=== PATIENT | male | born 1970 | race Caucasian/White ===

== ENCOUNTER 2016-12-10 13:30 | Observation (INO) | payer SELFPAY ==
[~2016-12-10] VITALS: Ht 185.4 cm; Wt 124.3 kg
[2016-12-10] VITALS (8 sets, daily range): BP systolic 103–157; BP diastolic 64–101; PULSE 60–103; RESP 11–22; O2SAT 93–100
[2016-12-10 14:23] LABS: BASOPHILS % (AUTO) 0.2 % (0-3); EOSINOPHILS % (AUTO) 0.2 % (0-5); MONOCYTES % (AUTO) 5.4 % (4-12); Mean Corpuscular Hemoglobin 31.3 pg (27.0-35.0); Mean Corpuscular Volume 89.2 fL (81-100); NEUTROPHILS % (AUTO) 84.7 % (40-74); Platelet Count 216 bil/L (150-400)
[2016-12-10 14:46] LABS: Magnesium 1.7 mg/dL (1.6-2.6)
--- NOTE | 2016-12-10 16:05 | ED.REPORT ---
HPI-Abd Pain M 40 and Over Date of Service Dec 10, 2016 ED Provider: Doc,Ed MD History of Present Illness: right lower abd pain since 1 am this am, some nausea, no vomiting. primary care is no one. 02/25 no hx of kidney stone. Had a bannana at 3 am. Nursing Notes Stated Complaint: ABD PAIN Chief Complaint: Male Abdominal Pain Nursing Notes Reviewed: Yes Allergies: Coded Allergies: No Known Allergies (Unverified , 12/10/16) Scheduled Ascorbate Calcium (Vitamin C) 500 Mg Tablet 500 MG PO DAILY Cholecalciferol (Vitamin D3) (Vitamin D) 1,000 Unit Tablet 1,000 UNIT PO DAILY Multivitamin (Once Daily) 1 Each Tablet 1 EACH PO DAILY General Time Seen by MD: 16:04 Chief Complaint Abdominal pain Hx Obtained From: Patient Sudden in Onset?: Yes Symptom Duration: Since onset Past Medical History Past Medical History Denies: Asthma, Diabetes mellitus Past Surgical History denies Smoking History Never Smoker Social History chewed for 30 years quit 07/2014 - 12/10/2016 Alcohol Use: Denies alcohol use (quit in 2008) Drug Use: THC (cocaine) Other Social History: Occupation work at [employer] in [place] Ambulatory Status Independent Review of Systems Basic Review of Systems Eyes: Vision NL, No discharge Skin: No bruising, No rash, No itch Psychiatric: Normal thought content Physical Exam Initial Vital Signs Vital Signs (First) Date Time Temp Pulse Resp B/P Pulse Ox O2 Delivery O2 Flow Rate FiO2 12/10/16 13:32 35.8 103 22 157/101 95 Room Air Initial VS: Reviewed, Vital signs normal Head / Eyes: Atraumatic, Normocephalic, PERRL ENT: Mucous membranes moist, Conjunctiva normal, No scleral icterus Neck: Supple, Non-tender, Full range of motion Lymphatic: No lymphadenopathy Extremities: Vascular intact, Neuro intact, No swelling, No tenderness Skin: Warm, Dry, No cyanosis Neurologic: Alert, Oriented, Nonfocal Psychiatric: Mood/affect normal, Behavior normal, Normal thought content General/Constitutional: Awake, Alert, No acute distress, Well appearing, Well developed, Well hydrated Respiratory / Chest: Atraumatic, Breath sounds NL, Breath sounds = bilat, No respiratory distress Cardiovascular: Heart rate NL, Regular rhythm, Heart sounds NL, No gallop, No murmurs, No rubs, Cap refill not delayed Abdomen: Soft Tenderness/Guarding/Rebound: Positive: Guarding voluntary, Tender RLQ... ( Moderate) Back: Atraumatic, Inspection NL, Full range of motion Head / Eyes: Atraumatic, Normocephalic, PERRL Interpretation & Diagnostics Lab Results Interpretation Result Diagram: 12/10/16 1415 12/10/16 1415 Test 12/10/16 14:15 12/10/16 17:39 White Blood Count 12.0th/mm3 (3.8-10.1) Red Blood Count 5.20mil/mm3 (4.40-5.80) Hemoglobin 16.3g/dL (13.8-17.2) Hematocrit 46.4% (41.0-50.0) Mean Corpuscular Volume 89.2fL (81-100) Mean Corpuscular Hemoglobin 31.3pg (27.0-35.0) Mean Corpuscular Hemoglobin Concent 35.1% (32.0-37.0) Red Cell Distribution Width 14.0% (12.3-15.4) Platelet Count 216bil/L (150-400) Neutrophils (%) (Auto) 84.7% (40-74) Lymphocytes (%) (Auto) 9.3% (14-46) Monocytes (%) (Auto) 5.4% (4-12) Eosinophils (%) (Auto) 0.2% (0-5) Basophils (%) (Auto) 0.2% (0-3) Sodium Level 136mEq/L (134-144) Potassium Level 4.0mEq/L (3.5-5.2) Chloride Level 97mEq/L (97-108) Carbon Dioxide Level 24mmol/L (18-29) Blood Urea Nitrogen 12mg/dL (6-24) Creatinine 0.86mg/dL (0.76-1.27) Estimat Glomerular Filtration Rate 102mL/min (>59) Glucose Level 110mg/dL (60-99) Calcium Level 9.7mg/dL (8.5-10.1) Magnesium Level 1.7mg/dL (1.6-2.6) Total Bilirubin 0.9mg/dL (0.0-1.2) Aspartate Amino Transf (AST/SGOT) 28U/L (0-50) Alanine Aminotransferase (ALT/SGPT) 46U/L (0-44) Alkaline Phosphatase 80U/L (25-150) Total Protein 7.5g/dL (6.4-8.4) Albumin 4.6g/dL (3.4-5.0) Lipase 21U/L (13-60) Hold Griffin Top Tube Received (Received) Urine Color Yellow (YELLOW) Urine Appearance Clear (CLEAR,HAZY) Urine pH 5.5 (5.0-8.0) Urine Specific [place] 1.015 (1.003-1.035) Urine Protein Negativemg/dL (NEG,TRACE) Urine Glucose (UA) Negativemg/dL (NEGATIVE) Urine Ketones Negativemg/dL (NEGATIVE) Urine Occult Blood Small (NEGATIVE) Urine Nitrite Negative (NEGATIVE) Urine Bilirubin Negative (NEGATIVE) Urine Urobilinogen Normalmg/dL (NORMAL) Urine Leukocyte Esterase Negative (NEGATIVE) Urine RBC 3-10/hpf (0-2) Urine WBC 0-5/hpf (0-5) Urine Epithelial Cells Few/hpf (NONE-MOD) Urine Crystals None seen (NONE SEEN) Urine Bacteria Few/hpf (NONE-FEW) Urine Hyaline Casts None/lpf (NONE) Urine Granular Casts None seen (NONE SEEN) Urine Waxy Casts None seen (NONE SEEN) Urine Red Blood Cell Casts None seen (NONE SEEN) Urine White Blood Cell Casts None seen (NONE SEEN) Urine Mucus None seen (None Seen) Urine Trichomonas None seen (NONE SEEN) Urine Yeast None (NONE SEEN) Urinalysis Comment None Urine Culture Reflexed Not indicated CT Abd / Pelvis Interpretation OCEDURE: CT ABDOMEN AND PELVIS WITH CONTRAST ([id number]) INDICATIONS: right lower quadrant pain TECHNIQUE: After the administration of intravenous contrast, 5 mm thick sections acquired from the diaphragm to the symphysis. 5 mm coronal and sagittal reformats were acquired. For radiation dose reduction, the following was used: automated exposure control, adjustment of mA and/or kV according to patient size. COMPARISON: None. FINDINGS: Image quality: Excellent. ABDOMEN: Lung bases: Lung bases are clear. Heart size is normal. Solid organs: Liver and spleen are normal in size and enhancement. Gallbladder appears normal. Biliary system is non dilated. Pancreas enhances normally. No adrenal nodules. Kidneys demonstrate normal size and enhancement, without hydronephrosis. Peritoneum and bowel: Bowel loops demonstrate normal wall thickness and caliber. No free fluid or air. Nodes and vessels: No retroperitoneal or mesenteric adenopathy by size criteria. Aorta and inferior vena cava are normal in size. Miscellaneous: No ventral hernias. PELVIS: Genitourinary: Bladder wall thickness is normal. Miscellaneous: No inguinal hernias or adenopathy. At the right lower quadrant there is definite acute appendicitis without evidence of appendiceal perforation at this time. There are appendicoliths both at the base of the appendix and at the far tip of the appendix, which extends inferiorly towards the right lower quadrant. The cecum is somewhat higher than usual in the lower abdomen, with the appendix tracking inferiorly into the pelvis. The appendiceal base is at the axial level of the umbilicus in this case. The maximal appendiceal diameter is 1.8 cm. Bones: No suspicious bony lesions. No vertebral body compression fractures. IMPRESSION: Acute appendicitis without evidence of appendiceal perforation at this time. As noted, there are at least 2 appendicoliths involved with the appendiceal dilatation and inflammation. Maximal appendiceal diameter is 1.8 cm, unusually prominent. This would increase the risk of perforation as would the appendicoliths noted. Findings immediately called to the ordering health care provider at the emergency room. She will contact the on-call surgeon for consultation. Dictated by: Navarro Armstrong M.D. on 12/10/2016 at 16:57 Approved by: Navarro Armstrong M.D. on 12/10/2016 at 17:02 Re-Eval/Medical Decision Med Decision/Clinical Course 45 year old male presents for evualation for sudden onset of right loer abd pain. CT does indicate acute appy. Dr. Jackson is notified and antibiotics are started. IV dilaulid for pain control Discharge & Departure Primary Impression: Acute appendicitis with appendiceal abscess Disposition: ADMITTED TO HOSPITAL Vital Signs - All Vital Signs Date Time Temp Pulse Resp B/P Pulse Ox O2 Delivery O2 Flow Rate FiO2 12/10/16 18:03 37.3 97 18 122/79 95 Room Air 12/10/16 15:12 37.6 95 16 138/80 93 Room Air 12/10/16 13:32 35.8 103 22 157/101 95 Room Air Referrals: NOPCP (PCP) EDSupervising Provider for APC: Estella Guillen MD, Sue ARNP Dec 10, 2016 16:05
[2016-12-10] MEDS ORDERED: Ondansetron 2 mg/mL 2 mL Inj IVPUSH ONE (16:15)
[2016-12-10] MEDS ORDERED: 0.9% Sodium Chloride 1,000 ML IV ONE (16:15)
[2016-12-10] MEDS ORDERED: HYDROmorphone 0.5 mg/0.5 mL iSecure Syringe IVPUSH ONE (16:15)
--- NOTE | 2016-12-10 17:04 | DRSVH ---
PROCEDURE: CT ABDOMEN AND PELVIS WITH CONTRAST ([id number]) INDICATIONS: right lower quadrant pain TECHNIQUE: After the administration of intravenous contrast, 5 mm thick sections acquired from the diaphragm to the symphysis. 5 mm coronal and sagittal reformats were acquired. For radiation dose reduction, the following was used: automated exposure control, adjustment of mA and/or kV according to patient siz e. COMPARISON: None. FINDINGS: Image quality: Excellent. ABDOMEN: Lung bases: Lung bases are clear. Heart size is normal. Solid organs: Liver and spleen are normal in size and enhancement. Gallbladder appears normal. David iary system is non dilated. Pancreas enhances normally. No adrenal nodules. Kidneys demonstrate no rmal size and enhancement, without hydronephrosis. Peritoneum and bowel: Bowel loops demonstrate normal wall thickness and caliber. No free fluid or a ir. Nodes and vessels: No retroperitoneal or mesenteric adenopathy by size criteria. Aorta and inferior vena cava are normal in size. Miscellaneous: No ventral hernias. PELVIS: Genitourinary: Bladder wall thickness is normal. Miscellaneous: No inguinal hernias or adenopathy. At the right lower quadrant there is definite acu te appendicitis without evidence of appendiceal perforation at this time. There are appendicoliths b oth at the base of the appendix and at the far tip of the appendix, which extends inferiorly towards the right lower quadrant. The cecum is somewhat higher than usual in the lower abdomen, with the alex endix tracking inferiorly into the pelvis. The appendiceal base is at the axial level of the umbilic us in this case. The maximal appendiceal diameter is 1.8 cm. Bones: No suspicious bony lesions. No vertebral body compression fractures. IMPRESSION: Acute appendicitis without evidence of appendiceal perforation at this time. As noted, t here are at least 2 appendicoliths involved with the appendiceal dilatation and inflammation. Maximal appendiceal diameter is 1.8 cm, unusually prominent. This would increase the risk of perfora tion as would the appendicoliths noted. Findings immediately called to the ordering health care provider at the emergency room. She will con tact the on-call surgeon for consultation. Dictated by: Navarro Armstrong M.D. on 12/10/2016 at 16:57 Approved by: Navarro Armstrong M.D. on 12/10/2016 at 17:02
[2016-12-10] MEDS ORDERED: Piperacillin-Tazo 3.375 Gm Inj 3.375 GM in Dextrose 5% Minibag Plus 50 ML IV ONE (17:10)
[2016-12-10] MEDS ORDERED: MULT-666 PO (17:34)
[2016-12-10] MEDS ORDERED: CHOL100043 PO (17:34)
[2016-12-10] MEDS ORDERED: ASCO-294 PO (17:34)
[2016-12-10 17:54] LABS: APPEARANCE,URINE CLEAR (CLEAR,HAZY); COLOR,URINE YELLOW (YELLOW); OCCULT BLOOD,URINE SMALL (NEGATIVE); PH,URINE 5.5 (5.0-8.0); UROBILINOGEN,URINE NORMAL (NORMAL)
[2016-12-10] MEDS ORDERED: HYDROmorphone 0.5 mg/0.5 mL iSecure Syringe IVPUSH PRN (18:05)
[2016-12-10] MEDS ORDERED: fentaNYL-PF 50 mCg/mL 2 mL Inj ONE (18:21)
[2016-12-10] MEDS ORDERED: Dexamethasone 4 mg/mL Inj ONE (18:21)
[2016-12-10] MEDS ORDERED: Remifentanil 1 mg/3 mL Inj ONE (18:21)
[2016-12-10] MEDS ORDERED: MetoCLOpramide 5 mg/mL 2 mL Inj ONE (18:21)
[2016-12-10] MEDS ORDERED: EPHEDrine/NS 5 mg/mL 5 mL Syringe ONE (18:21)
[2016-12-10] MEDS ORDERED: Neostigmine 1 mg/mL 10 mL Inj ONE (18:21)
[2016-12-10] MEDS ORDERED: Ondansetron 2 mg/mL 2 mL Inj ONE (18:21)
[2016-12-10] MEDS ORDERED: Succinylcholine Chloride 20 mg/mL 5 mL Inj ONE (18:21)
[2016-12-10] MEDS ORDERED: Glycopyrrolate 0.2 MG/ML 1mL Inj ONE (18:21)
[2016-12-10] MEDS ORDERED: Rocuronium 10 mg/mL 5 mL Inj ONE (18:21)
[2016-12-10] MEDS ORDERED: Propofol 10,000 mCg/mL 20 mL Inj ONE (18:21)
[2016-12-10] MEDS ORDERED: Lactated Ringer's 1,000 ML IV ONE (19:19)
[2016-12-10] MEDS ORDERED: Lactated Ringer's 500 ML IV PRN (19:37)
[2016-12-10] MEDS ORDERED: Lactated Ringer's 1,000 ML IV SCH (19:37)
--- NOTE | 2016-12-10 19:37 | PCM.HPANE ---
Patient Data Surgeon Admitting Provider:Fernando Jackson MD Attending Provider:Fernando Jacskon MD Primary Care Physician:Nopcp Other Provider: Reason for Visit APPY Ht/WT & BMI Height (Feet): 6 Height (Inches): 1 Weight (Kilograms): 122.73 Body Mass Index Allergies Coded Allergies: No Known Allergies (Unverified , 12/10/16) Past Anesthesia History Anesthesia History: Denies:: Abnormal Airway, Anesthesia Reactions, Difficult Intubation, Fam Anesthesia Reaction, Fam Malignant Hypertherm, Malignant Hyperthermia Diabetes History Hx Diabetes?: No Medications Reported Medications Cholecalciferol (Vitamin D3) (Vitamin D)1,000 Unit Tablet1,000 Unit PO DAILY #1 BOTTLE Ref 0 12/10/16 Multivitamin (Once Daily)1 Each Tablet1 Each PO DAILY 12/10/16 Ascorbate Calcium (Vitamin C)500 Mg Unsyxt336 Mg PO DAILY 12/10/16 History History of ENT Problems?: No HEENT History: Denies:: Abnormal Airway Cataracts Difficult Intubation Dysphagia Glaucoma Hearing Problem Sinus Problem TMJ Denture Type: None Teeth Condition: Within Normal Limits Hx of Heart Problems?: No Cardiovascular History: Denies:: AICD Abdominal Aortic Aneurism Atrial Fibrillation Cardiac Surgery Chest Pain Congestive Heart Failure Coronary Artery Disease Edema Heart Murmur Hypertension Irregular Heartbeat Pacemaker Peripheral Vascular Rheumatic Fever Thrombophlebitis Valvular Heart Disease Hx of Respiratory Problem?: No Respiratory History: Denies:: Asthma COPD Chest Surgery Cough Dyspnea Emphysema Hemoptysis Oxygen Administration Pneumonia Pulmonary Embolism Tuberculosis Use of C-PAP Machine Use of Inhalers / NEBS Hx Neurologic Problems?: No Neurological History: Denies:: Alzheimer's Disease CVA Dementia Dizziness Headaches Multiple Sclerosis Parkinson's Disease Peripheral Neuropathy Seizures TIA Hx of GI Problems?: No Gastrointestinal History: Denies:: Cirrhosis Diverticulitis Gall Bladder Disease Gastroesphageal Reflux Gastrointestinal Bleeding Heartburn Hepatitis Hiatal Hernia Liver Disease Rectal Bleeding Hx of Problems?: No Genitourinary History: Denies:: HX of Hemodialysis Kidney Stones Urinary Tract Infection Male Hx: Denies:: Prostate Problems Scrotal Mass Testicular Surgery Skin History: Denies:: History Skin Disorders? Pressure Ulcers Hx Musculoskeletal Problems?: No Musculoskeletal History: Denies:: Back Injury Degenerative Joint Fibromyalgia Joint Replacement Musculoskeletal Trauma Myasthenia Gravis Osteoarthritis Rheumatoid Arthritis Systemic Lupus Hx of Psycho/Social Problems?: No Psycho Social History: Denies:: Anxiety Bipolar Disorder Hx Depression Suicide Attempt Hx Surgeries?: No Hx Diabetes: No Hx Alcohol Use: Yes (QUIT 2008 "WAS FAIRLY HEAVY DRINKER")Hx Substance Use: Yes (COCAINE, MARIJUANA AND ACID A TEEN) Smoking Status: Never Smoker Stop/Bang Risk Assessment Category Category 1A: Patient has history of documented sleep apnea, and HAS NOT received any narcotic, sedative or anesthesia administration during this stay. Category 1B: Patient has history of documented sleep apnea, and HAS received any narcotic , sedative or anesthesia administration during this stay Category 2: Patient has SUSPECTED Obstructive Sleep Apnea, and HAS received any narcotic , sedative or anesthesia administration during this stay. Category 3: Patient has SUSPECTED Obstructive Sleep Apnea and HAS NOT received narcotic, sedative or anesthesia administration during this stay. Category 4: Outpatient in Procedural Areas with known sleep apnea or who screen positive for High Risk via the STOP/BANG questionnaire. Exam Exam Vital Signs Vital Signs Date Time Temp Pulse Resp B/P Pulse Ox O2 Delivery O2 Flow Rate FiO2 12/10/16 18:03 37.3 97 18 122/79 95 Room Air 12/10/16 15:12 37.6 95 16 138/80 93 Room Air 12/10/16 13:32 35.8 103 22 157/101 95 Room Air General Appearance: Alert, Oriented X3, Cooperative, No Acute Distress HEENT/AIRWAY: MP 2 Lungs: Clear to Auscultation Heart: Exam Unremarkable Meds/Labs/Diagnostics Admission Meds Current Medications Sodium Chloride (Normal Saline) 1,000 ml @ 0 mls/hr Q0M ONCE IV Last administered on 12/10/16 16:23; Start 12/10/16 at 16:15; Stop 12/10/16 at 16:17 ; Status DC Ondansetron HCl (Zofran Inj) 4 mg ONCE ONCE IVPUSH Last administered on 16:23; Start 12/10/16 at 16:15; Stop 12/10/16 at 16:17; Status DC Hydromorphone HCl 0.5 mg 0.5 mg ONCE ONCE IVPUSH Last administered on 16:23; Start 12/10/16 at 16:15; Stop 12/10/16 at 16:17; Status DC Piperacillin Sod/ Tazobactam Sod/ Dextrose/Water (Zosyn 3.375 Gm Inj/D5W Minibag Plus) 50 ml @ 100 mls/hr ONCE ONCE IV Last administered on 12/10/16t 17:38; Start 12/10/16 at 17:10; Stop 12/10/16 at 17:39; Status DC Labs Test 12/10/16 14:15 12/10/16 17:39 White Blood Count 12.0th/mm3 (3.8-10.1) Red Blood Count 5.20mil/mm3 (4.40-5.80) Hemoglobin 16.3g/dL (13.8-17.2) Hematocrit 46.4% (41.0-50.0) Mean Corpuscular Volume 89.2fL (81-100) Mean Corpuscular Hemoglobin 31.3pg (27.0-35.0) Mean Corpuscular Hemoglobin Concent 35.1% (32.0-37.0) Red Cell Distribution Width 14.0% (12.3-15.4) Platelet Count 216bil/L (150-400) Neutrophils (%) (Auto) 84.7% (40-74) Lymphocytes (%) (Auto) 9.3% (14-46) Monocytes (%) (Auto) 5.4% (4-12) Eosinophils (%) (Auto) 0.2% (0-5) Basophils (%) (Auto) 0.2% (0-3) Sodium Level 136mEq/L (134-144) Potassium Level 4.0mEq/L (3.5-5.2) Chloride Level 97mEq/L (97-108) Carbon Dioxide Level 24mmol/L (18-29) Blood Urea Nitrogen 12mg/dL (6-24) Creatinine 0.86mg/dL (0.76-1.27) Estimat Glomerular Filtration Rate 102mL/min (>59) Glucose Level 110mg/dL (60-99) Calcium Level 9.7mg/dL (8.5-10.1) Magnesium Level 1.7mg/dL (1.6-2.6) Total Bilirubin 0.9mg/dL (0.0-1.2) Aspartate Amino Transf (AST/SGOT) 28U/L (0-50) Alanine Aminotransferase (ALT/SGPT) 46U/L (0-44) Alkaline Phosphatase 80U/L (25-150) Total Protein 7.5g/dL (6.4-8.4) Albumin 4.6g/dL (3.4-5.0) Lipase 21U/L (13-60) Hold Griffin Top Tube Received (Received) Urine Color Yellow (YELLOW) Urine Appearance Clear (CLEAR,HAZY) Urine pH 5.5 (5.0-8.0) Urine Specific [place] 1.015 (1.003-1.035) Urine Protein Negativemg/dL (NEG,TRACE) Urine Glucose (UA) Negativemg/dL (NEGATIVE) Urine Ketones Negativemg/dL (NEGATIVE) Urine Occult Blood Small (NEGATIVE) Urine Nitrite Negative (NEGATIVE) Urine Bilirubin Negative (NEGATIVE) Urine Urobilinogen Normalmg/dL (NORMAL) Urine Leukocyte Esterase Negative (NEGATIVE) Urine RBC 3-10/hpf (0-2) Urine WBC 0-5/hpf (0-5) Urine Epithelial Cells Few/hpf (NONE-MOD) Urine Crystals None seen (NONE SEEN) Urine Bacteria Few/hpf (NONE-FEW) Urine Hyaline Casts None/lpf (NONE) Urine Granular Casts None seen (NONE SEEN) Urine Waxy Casts None seen (NONE SEEN) Urine Red Blood Cell Casts None seen (NONE SEEN) Urine White Blood Cell Casts None seen (NONE SEEN) Urine Mucus None seen (None Seen) Urine Trichomonas None seen (NONE SEEN) Urine Yeast None (NONE SEEN) Urinalysis Comment None Urine Culture Reflexed Not indicated Plan Impression Patient chart reviewed, patient interviewed and anesthestic plan with risks, benefits, and alternatives discussed, and informed consent obtained. ASA Physical Status: ASA2 Mod Systemic Disease Anesthetic Plan: GA Bene/Risks/Altern/Consents: Yes HP Complete Prior to Induction: Yes Gabriel Mauricio MD Dec 10, 2016 18:22
[2016-12-10] MEDS ORDERED: Dexamethasone 4 mg/mL Inj IVPUSH PRN (19:40)
[2016-12-10] MEDS ORDERED: Phenylephrine 10,000 mCg/mL Inj IVPUSH PRN (19:40)
[2016-12-10] MEDS ORDERED: EPHEDrine Sulfate 50 mg/mL Inj IVPUSH PRN (19:40)
[2016-12-10] MEDS ORDERED: MetoCLOpramide 5 mg/mL 2 mL Inj IVPUSH PRN (19:40)
[2016-12-10] MEDS ORDERED: HYDROmorphone 1 mg/mL Inj IVPUSH PRN ×2 (19:40→20:15)
[2016-12-10] MEDS ORDERED: Ondansetron 2 mg/mL 2 mL Inj IVPUSH PRN ×2 (19:40→20:10)
[2016-12-10] MEDS ORDERED: fentaNYL-PF 50 mCg/mL 2 mL Inj IVPUSH PRN (19:40)
[2016-12-10] MEDS ORDERED: Bupivacaine-MPF 0.5% W/EPI 30 mL Inj INFILTRATE ONE (19:51)
[2016-12-10] MEDS ORDERED: Sodium Chloride LOK Flush 10 mL Syringe IVFLUSH PRN (20:10)
--- NOTE | 2016-12-10 20:32 | PCM.ANEP1 ---
Post Anesthesia Phase 1 PACU Phase 1 Assessment Vital Signs Vital Signs Date Time Temp Pulse Resp B/P Pulse Ox O2 Delivery O2 Flow Rate FiO2 12/10/16 20:26 36.3 68 11 104/67 100 Simple Mask 8 12/10/16 18:03 37.3 97 18 122/79 95 Room Air 12/10/16 15:12 37.6 95 16 138/80 93 Room Air 12/10/16 13:32 35.8 103 22 157/101 95 Room Air Anesthetic Administered: GA Level of Alertness: Awake, talking HERRERA's with Equal Strength: Yes Pain: No Pain Scale Score: 5 Nausea or Vomiting: No Oxygen Delivery: Simple Mask Lungs: Clear to Auscultation Dermatome Level: Full Sensation Complications: No Gabriel Mauricio MD Dec 10, 2016 20:31
--- NOTE | 2016-12-10 22:32 | HP ---
[address] [address] HISTORY AND PHYSICAL PATIENT: PARI MENDOSA : 1970 MR#: [id number] ADMIT: 12/10/2016 JOB ID: [id number] CHIEF COMPLAINT: Appendicitis. HISTORY OF PRESENT ILLNESS: The patient is a 45-year-old male with a one day history of abdominal pain. The patient woke up at 1 a.m. this morning with excruciating pain that was described as shooting. This was associated with nausea but no emesis. He did feel some warm and chills today. Thinking back, he has had 3-4 month history of pain in the right lower quadrant when he bends over, which only lasts a few minutes. Due to the excruciating pain in the right lower quadrant, patient presented to the emergency department for evaluation. A CT scan was performed that suggests acute appendicitis. PAST MEDICAL HISTORY: Broken ribs, broken nose and broken wrist. MEDICATIONS: None. ALLERGIES: None. SOCIAL HISTORY: The patient lives with his in [place]. They have one daughter. 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 He does not smoke. FAMILY HISTORY: Positive for liver disease, but no appendicitis. REVIEW OF SYSTEMS: Positive for the right lower quadrant pain, nausea and chills. All other systems reviewed were negative. PHYSICAL EXAMINATION: The patient is currently in the [facility] in no acute distress. His BMI is 35.7. His temperature 37.6, blood pressure 138/80, pulse 95, respirations 16. Head: Normocephalic, atraumatic. There is no scleral icterus. Neck is supple. Heart is regular rate. Lungs are clear. Abdomen is nondistended but it is tender in the right lower quadrant on palpation. There is no rebound. There are no palpable masses. Extremities shows no clubbing and no cyanosis. Neurologically, the patient is appropriate and answers questions. LABORATORY EXAMINATION: Today shows a white blood count of 12, hematocrit 46.4, platelet count is 216. Sodium is 136, potassium 4.0, creatinine 0.86, lipase of 21. CT scan report from today shows a 1.8 cm appendix with two appendicoliths suggesting acute appendicitis. ASSESSMENT: This is a 45-year-old male with acute appendicitis. The patient has been started on IV antibiotics. We will take the patient to the operating room today for laparoscopic appendectomy, possible open. The risks of the operation were explained to the patient and he understands and wishes to proceed.
--- NOTE | 2016-12-10 23:52 | OP ---
[address] [address] OPERATIVE REPORT PATIENT: PARI MENDOSA : 1970 MR#: [id number] ADMIT: 12/10/2016 JOB ID: [id number] DATE OF SURGERY: 12/10/2016 SURGEON: Fernando Jackson MD FI[employer]PERATIONS FARM MANAGER: Alonso Rodriguez PA-C ANESTHESIA: General. PREOPERATIVE DIAGNOSIS(ES): Acute appendicitis. POSTOPERATIVE DIAGNOSIS(ES): Acute appendicitis. PRINCIPAL PROCEDURE: Laparoscopic appendectomy. INDICATION FOR PROCEDURE: The patient is a 45-year-old male with a CT scan finding consistent with acute appendicitis. PRINCIPAL FINDING: Successful laparoscopic appendectomy for acute nonperforated appendicitis. The assistance from a surgical PA was critical in assistance with camera and instruments, and was critical in completion of the case. PROCEDURE COURSE: The patient was brought to the operating table and was provided with general anesthesia. The patient had already received IV antibiotics and was provided with SCDs. A time-out was performed. The patient's abdomen was then prepped and draped in the usual sterile fashion. Next, local anesthetic was injected into the left upper quadrant location and a 5 mm stab incision was made. A Veress needle was used to establish pneumoperitoneum. Next, a 5 mm trocar was then placed and the laparoscope was then introduced. A second 5 mm trocar was then placed in the left lateral abdomen and a 12 mm trocar was then placed in the left lower quadrant. The appendix was quickly identified in the right lower quadrant with signs of acute appendicitis. The mesoappendix was then taken using electrocautery. The base of the appendix was freed circumferentially. Next, using an endoscopic stapler, the base of the appendix was then transected. The specimen was then placed into the EndoCatch bag and removed from the patient. Irrigation of the pelvis, right lower quadrant and of the right upper quadrant was carried out. The staple line was intact and there were no signs of bleeding. Next, we turned our attention to the left lower quadrant trocar site. The fascial defect there was then reapproximated using 0 Vicryl suture using the Endoclose device. Next, CO2 was allowed to escape and all the trocars were then removed from the patient. Skin edges were then reapproximated using absorbable sutures. Steri-Strips and sterile dressing was then placed over each wound. By the end of procedure, needle counts and sponge counts were correct. The patient was then extubated and taken to the recovery room in stable satisfactory condition.
[2016-12-11] MEDS ORDERED: 0.9% Sodium Chloride 250 ML ONE (01:13)
[2016-12-11] MEDS: Piperacillin-Tazo 3.375 Gm Inj 3.375 GM in Dextrose 5% Minibag Plus 50 ML IV SCH ×2 (01:24→09:47)
--- NOTE | 2016-12-11 01:35 | NUR ---
post op pt arrived to [facility] room 1017 at 2130. he is alert and oriented x3. He has 3 lap sites with steri strips and band-aids that are c/d/i. he is tolerated water and has eaten crackers and soup without any n/v. he complained of pain 6/10 in his abdomen and was given a one time dose of 0.5 mg of dilaudid and has been sleeping, appearing comfortable since then. VSS and a-febrile. care continues.
[2016-12-11 01:52] VITALS: BP 108/62; PULSE 78; RESP 18; O2SAT 97
[2016-12-11 05:47] VITALS: BP 116/68; PULSE 80; RESP 18; O2SAT 98
[2016-12-11 06:13] LABS: Mean Corpuscular Hemoglobin 31.7 pg (27.0-35.0); Mean Corpuscular Volume 91.5 fL (81-100)
[2016-12-11] MEDS: HYDROcodone-APAP 5-325 mg Tablet PO PRN ×3 (06:24→11:51)
--- NOTE | 2016-12-11 10:30 | NUR ---
Social Work-screening/readiness for discharge: Data:EMR Reviewed. Pt is 45 y/o female who was admitted on 12/10/16 for appy per H&P. Pt's insurance is self pay and no PCP. SW met with pt at bedside to discuss discharge planning, SW role explained. Pt is alert and oriented x3. Pt resides at home with his family in [place] where he remains independent with ADLS. Pt drives and has been up ambulating in the hallways independently. Pt confirms he has not completed Advanced directive/DPOA paperwork and is not interested in any information. SW discussed pt's lack of insurance and PCP. Pt confirms that he is not interested in [facility],etc due to being too expensive. [facility]CA to screen pt. SW provided pt with [facility] application. SW provided pt with phone number and plan on white board in room. Pt's family to provide transport home. No discharge needs identified. SW will continue to follow. Assessment:Pt who is independent at baseline. Plan:Pt to discharge home when medically stable via POV.[facility] application has been provided. No discharge needs identified. SW will continue to follow. CHELY Reyes
--- NOTE | 2016-12-11 12:34 | PCM.DISURG ---
Surgical Discharge Instruction Date of Service Dec 11, 2016 Dates of Hospitalization Date of Hospital Admission Dec 10, 2016 at 18:20 Providers Admitting Physician: Fernando Jackson MD Primary Care Physician: Nopcp Attending Physician: Fernando Jackson MD Discharge Diagnosis Discharge Diagnosis acute appendicitis Post Operative diagnosis same, status post laparoscopic appendectomy Diet Discharge Diet: No restrictions Activity Discharge Activity-General: Try not to overdue, Be up and about, Balance rest and activity, No driving while taking narcotic Dressing and Incisional Care Dressing Care: Allow Steri Stripes to fall off, Remove outer dressing after 24 hrs Hygiene: May shower, DO NOT soak incision under water, NO bathtub, hot tub or whirlpool Additional Instructions Discharge Instructions Call the office with any questions or concerns, keep hydrated and take stool softeners as needed; minimize narcotics and it is ok to take ibuprofen, 400- 600mg with food for mild pain and narcotics for severe or break through pain Follow Up Plan Follow Up Plan Followup in surgery clinic as instructed, Mid-level Provider (F9): Janette Garibay PAC Follow-up appointment: Days (10-14) Call your provider for: Fever, Chills, Shortness of breath, Increasing abdominal pain, Vomiting, Wound redness, Increasing wound pain, Warmth to touch , Discharge @ incision, pus discharge Janette Garibay PAC Dec 11, 2016 12:34
[2016-12-11] MEDS ORDERED: HYDR-4003 PO (12:36)
--- NOTE | 2016-12-11 13:34 | NUR ---
Social Work-discharge: Data:EMR Reviewed. Pt is on day 1 of hospitalization for appy per H&P. Pt is medically stable for discharge. [facility] application has been provided to pt. Pt has been up independent in his room. Pt's family to provide transport home. No discharge needs identified. All updated and agreeable to plan. Assessment:Pt who is independent at baseline. Plan:Pt to discharge home today via POV. No discharge needs identified. All updated and agreeable to plan. CHELY Reyes
--- NOTE | 2016-12-11 14:24 | PCM.PNSURG ---
Subjective Date of Service: Dec 11, 2016 Date of Service: Dec 11, 2016 Visit Information: Reason for Visit APPY Surgery/Surgery Date LAP APPENDECTOMY 12/10/16 Post-Op Day # Date of Admission: Dec 10, 2016 at 18:20 Hospital Day # Subjective: Patient is seen in surgical follow-up, he is postop day 1 status post lap appendectomy for acute appendicitis. He reports he is doing very well, his pain is well-controlled Vicodin.. His pain is in the left lower quadrant the left lower quadrant port site He is tolerating a regular diet without nausea/ vomiting. He is passing flatus. Postop General: No Shortness of Breath Gastrointestinal: Tolerating Oral Feedings, No N/V, Passing Flatus Pain Management: PO Postop Activity: Ambulating Independently, Ambulate without Assist, Ambulating in Room Only Objective Objective Pleasant middle-aged man in no acute distress, and child bedside Intake and Output- Last 8 Hour 12/11/16 Cumulative From/Thru 07:00 12/10/16 13:32 - 12/11/16 05:47 Intake Total 600 ml 1500 ml Output Total 350 ml 350 ml Balance 250 ml 1150 ml Intake Oral 600 ml 600 ml IV Total 900 ml Output Urine Total 350 ml 350 ml # Voids 1 1 # Bowel Movements 0 0 General: Alert, Oriented X3, Cooperative, No Acute Distress Lungs: Clear to Auscultation, Normal Air Movement Heart: Regular Rate/Rhythm Abdomen: Benign, Appropriately tender (left lower quadrant at port site, mild- to moderate tenderness with deep palpation), Non-distended, Protuberant, Normoactive bowel tones, Other (no peritoneal signs) SURGICAL WOUND : Wound General Appearence: No Discharge, No Inflammatory Changes, Wound under dressing (Band-Aids) Dressing & Drainage Status: Intact, No Purulent Drainage, No Odor Extremities: Warm Neuro: Grossly Neurologically Intact, Normal Speech Catheters: None Result Diagram: 12/11/16 0530 12/10/16 1307 Assessment & Plan Impression 45-year-old male postop day 1 status post laparoscopic appendectomy for acute appendicitis. He is tolerating a regular diet, pain is well-controlled, he is voiding without difficulty and passing flatus. He is felt to be medically and surgically stable and ready for discharge to home. Problems: (1) Appendicitis Status: Acute ICD Code: K37 Plan 1. Discharged to home with family 2. Prescription for Vicodin 3. Recommended stool softeners until bowels normalized, hydration, prune juice and warm teas 4. It went over discharge instructions including incision/dressing care and instructions written 5. Follow-up within [facility] in 10-14 days 6. Gave instructions on reasons to contact the office if needed prior to follow -up appointment. All questions were answered at this time. Pain Management: Vicodin when necessary Janette Garibay PAC Dec 11, 2016 14:24
--- NOTE | 2016-12-11 14:35 | PCM.DC.SUR ---
Discharge Summary Date of Service: Dec 11, 2016 Date of Hospital Admission: Dec 10, 2016 at 18:20 Date of Operation(s): 12/10/2016 Date of Discharge: 12/11/2016 Problems: (1) Appendicitis Status: Resolved ICD Code: K37 Operation Laparoscopic appendectomy Brief History and Physical: Patient is a 45-year-old male with a one-day history of right lower quadrant abdominal pain with associated symptoms of nausea and chills. He is evaluated in the ER where he was found to have a white blood cell count of 12,[address] scan suggestive of acute appendicitis. He was consented for laparoscopic appendectomy and brought to the OR. Hospital Course: Patient underwent the above-mentioned operation without complication. On postop day 1 he was tolerating a regular diet, his pain was well-controlled with oral analgesics and he was voiding without difficulty. He is passing flatus but had not had a bowel movement. He was out of bed independently. He was anxious and ready for discharge to home. He was felt to be medically and surgically stable for discharge to home. His white blood cell count had normalized on the date of discharge and he had no overnight fevers and vital signs were stable. He was given discharge instructions with follow-up in the [facility] in 10-14 days. He was given instructions on reasons to contact the office before his postop appointment. He was encouraged to take minimal narcotics and use stool softeners or MiraLAX as needed for return of bowel movements. Both he and his voiced understanding of instructions. Pathology: Pending Disposition: Patient was felt to be medically and surgically stable for discharge to home. His pain was well-controlled, he was voiding without difficulty and tolerating a regular diet. Follow-up Plan: Follow-up in the [place] surgical clinic in 10-14 days Ascorbate Calcium (Vitamin C) 500 Mg Tablet 500 MG PO DAILY (Reported) Cholecalciferol (Vitamin D3) (Vitamin D) 1,000 Unit Tablet 1,000 UNIT PO DAILY ( Reported) Hydrocodone-Acetaminophen 5-325 mg (Hydrocodone-Acetaminophen 5-325 mg) 1 Each Tablet 1-2 TABLET PO Q4-6H PRN PRN For Pain Multivitamin (Once Daily) 1 Each Tablet 1 EACH PO DAILY (Reported) Janette Garibay PAC Dec 11, 2016 14:35
--- NOTE | 2016-12-11 15:09 | NUR ---
Discharge Patient discharged home with . patient given verbal and written home care instructions and agreed to understanding them. Prescription for pain med given. pt will call to arrange follow up appointment with surgeon for 10-14 days.
--- NOTE | 2016-12-13 13:16 | PATH ---
SURGICAL PATHOLOGY Attending Physician:Fernando Jackson M.D. CASE STATUS: Signed Out PATIENT NAME: PARI MENDOSA PID: [id number] : 1970 DATE COLLECTED:12/10/2016 00:00 SPECIMEN: Appendix CLINICAL HISTORY: APPY 1). APPENDIX FINAL DIAGNOSIS: 1.APPENDIX: ACUTE APPENDICITIS. NO EVIDENCE OF MALIGNANCY. ICD10 CODE K35.80 GROSS DESCRIPTION: The specimen is received in one formalin filled container labeled with the patient's name, sublabeled "appendix" and consists of one cylindrical young appendix measuring 8.0 x 1.5 x 1.5 CM. The serosal surface is white young-brown, smooth and glistening. There is a large amount of attached fatty tissue. Section reveals the wall to be thickened to approximately 0.2 CM. The lumen contains a solid to friable dark brown material. 4 field representatives director sections are submitted in 2 cassettes. 12/11/2016 DAC MICRO DESCRIPTION: See diagnosis. ICD-9 CODES: CPT CODES: 1: 11714 Electronically Signed Out Lilly Valadez MD [facility] [address], [place] [address] Technical component performed at [facility], [address] [place] [address] Ave[address], [place], [address]
== END 2016-12-11 13:30 | disposition home or self-care (01) ==
LOC: SED 13:30 → INTOOBSV 18:20 → OSC 18:20
PROVIDERS: ADMIT Surgery; ATTEND Surgery
DX: K35.80 Unspecified acute appendicitis (principal); R10.31 Right lower quadrant pain; Z87.891 Personal history of nicotine dependence
CPT/HCPCS: 36415; 44970; 74177; 80053; 81000; 83690; 83735; 85025; 85027; 96361; 96365; 96366; 96375; 96376; 99285; G0378; J0330; J1100; J1170; J1885; J2250; J2405; J2543; J2710; J2765; J3010; J7030; J7050; J7120; Q9967